=== PATIENT | male | born 1990 | race African-American/Black ===

== ENCOUNTER 2022-05-05 22:01 | Emergency (ER) | payer MEDICAID | END 2022-05-06 01:02 | disposition home or self-care (01) | LOC: ERS 22:01 | DX: S62.316A Displaced fracture of base of fifth metacarpal bone, right hand, initial encounter for closed fracture (principal); R60.0 Localized edema; M79.89 Other specified soft tissue disorders; W22.8XXA Striking against or struck by other objects, initial encounter | CPT/HCPCS: 29085 ==

== ENCOUNTER 2023-05-27 10:46 | Emergency (ER) | payer SELFPAY | END 2023-05-27 12:06 | disposition home or self-care (01) | LOC: ERS 10:46 | DX: B34.9 Viral infection, unspecified (principal); F17.210 Nicotine dependence, cigarettes, uncomplicated | CPT/HCPCS: 99283 ==